=== PATIENT | female | born 1980 | race Caucasian/White ===

== ENCOUNTER 2017-02-23 06:47 | Emergency (ER) | payer MEDICAID, OTHER ==
[~2017-02-23] VITALS: Ht 170.2 cm; Wt 70.0 kg
[~2017-02-23 06:47] MED LIST: IBUP-1542 PO
[2017-02-23 06:55] VITALS: Ht 170.2 cm; Wt 70.0 kg
[2017-02-23] MEDS ORDERED: LORAZEPAM 2 MG INJ IV STA (07:00)
[2017-02-23 07:34] LABS: BASOPHIL # 0.1 10^3/ul (0.0-0.1); BASOPHILS % 0.4 % (0.0-2.0); EOSINOPHILS # 0.5 10^3/ul (0.0-0.5); EOSINOPHILS % 3.3 % (0.0-7.0); HEMATOCRIT 35.5 % (37.0-47.0); HEMOGLOBIN 12.8 g/dl (12.0-16.0); LYMPHOCYTES # 4.2 10^3/ul (0.8-2.9); LYMPHOCYTES % 27.8 % (15.0-51.0); MEAN CORPUSCULAR HEMOGLOBIN 30.8 pg (29.0-33.0); MEAN CORPUSCULAR HGB CONC 36.1 g/dl (32.0-37.0); MEAN CORPUSCULAR VOLUME 85.5 fl (82.0-101.0); MEAN PLATELET VOLUME 10.2 fl (7.4-10.4); MONOCYTE # 1.1 10^3/ul (0.3-0.9); NEUTROPHIL # 9.2 10^3/ul (1.6-7.5); NEUTROPHILS % 61.1 % (39.0-77.0); PLATELET COUNT 415 10^3/UL (140-415); RED BLOOD COUNT 4.15 10^6/ul (4.20-5.40); RED CELL DISTRIBUTION WIDTH 13.5 % (11.5-14.5); WHITE BLOOD COUNT 15.1 10^3/ul (4.8-10.8)
[2017-02-23 07:48] LABS: ANION GAP 18 (8-16); BLOOD UREA NITROGEN 9 mg/dl (7-20); CALCIUM 9.5 mg/dl (8.4-10.2); CARBON DIOXIDE 21 mmol/L (21-31); CHLORIDE 108 mmol/L (97-110); CREATININE 0.98 mg/dl (0.44-1.00); GLUCOSE 101 mg/dl (70-220); POTASSIUM 3.9 mmol/L (3.5-5.1); SODIUM 143 mmol/L (135-144)
[2017-02-23 07:53] LABS: ETHANOL < 10.0 mg/dl
[2017-02-23] MEDS ORDERED: SOD CHLORIDE 0.9% 1,000 ML IV STA (07:54)
[2017-02-23] MEDS ORDERED: OXCA150T43 PO (08:32)
[2017-02-23 09:45] VITALS: BP 115/84; PULSE 80; RESP 16; TEMP 98.4
[2017-02-23 09:51] LABS: BARBITURATES Negative (NEGATIVE); BENZODIAZEPINES Negative (NEGATIVE); CANNABINOIDS Positive (NEGATIVE); COCAINE Negative (NEGATIVE); OPIATES Negative (NEGATIVE)
--- NOTE | 2017-02-23 10:02 | ERD ---
ER Documentation Chief Complaint Chief Complaint BIB [facility] FOR SEIZURE EPISODE THIS AM. HX OF SEIZURES. NO APPARENT INJURIES HPI Patient is a 36-year-old female with seizures who presents with a seizure. She was brought in by ambulance. She has a history of seizures. She had a "focal seizure" today. She takes oxcarbazepine per the . The seizure happened at 6:05 AM and lasted 4-5 minutes. It stopped on its own. The patient had confusion and "finger clicking" per the . Upon review of old medical records this is the patient's second visit to the ER. Patient and do not remember the primary doctor's name. ROS All systems reviewed and are negative except as per history of present illness. Medications Home Meds Active Scripts Ibuprofen* (Motrin*) 600 Mg Tab, 600 MG PO Q6, #30 TAB Prov:GAVIN HERNANDEZ PA-C 01/13/16 Reported Medications Oxcarbazepine* (Oxcarbazepine*) 150 Mg Tablet, 150 MG PO BID, #60 02/23/17 Allergies Allergies: Coded Allergies: No Known Allergy (Unverified , 02/23/17) PMhx/Soc Medical and Surgical Hx: pt denies Surgical Hx History of Surgery: No Hx Neurological Disorder: Yes (SEIZURES) Hx Respiratory Disorders: No Hx Cardiac Disorders: No Hx Psychiatric Problems: No Hx Miscellaneous Medical Probl: No Hx Alcohol Use: Yes (DAILY DRINKER QUIT 2-WEEKS AGO) Hx Substance Use: No Hx Tobacco Use: Yes (10 CIGS/DAY) Smoking Status: Current every day smoker FmHx Family History: No diabetes Physical Exam Vitals Vital Signs Date Time Temp Pulse Resp B/P Pulse Ox O2 Delivery O2 Flow Rate FiO2 02/23/17 06:55 98.3 109 18 108/70 98 Physical Exam Const: No acute distress Head: Atraumatic Eyes: Normal Conjunctiva ENT: Normal External Ears, Nose and Mouth. Neck: Full range of motion..~ No meningismus. Resp: Clear to auscultation bilaterally Cardio: Regular rate and rhythm, no murmurs Abd: Soft, non tender, non distended. Normal bowel sounds Skin: No petechiae or rashes Back: No midline or flank tenderness Ext: No cyanosis, or edema Neur: Awake and alert, confusion but no active seizure activity Psych: Normal Mood and Affect Result Diagram: 10/27/17 0654 02/23/17 0654 Results 24 hrs Laboratory Tests Test 02/23/17 06:54 02/23/17 07:15 02/23/17 07:20 02/23/17 09:15 White Blood Count 15.110^3/ul Red Blood Count 4.1510^6/ul Hemoglobin 12.8g/dl Hematocrit 35.5% Mean Corpuscular Volume 85.5fl Mean Corpuscular Hemoglobin 30.8pg Mean Corpuscular Hemoglobin Concent 36.1g/dl Red Cell Distribution Width 13.5% Platelet Count 07883^3/UL Mean Platelet Volume 10.2fl Neutrophils % 61.1% Lymphocytes % 27.8% Monocytes % 7.0% Eosinophils % 3.3% Basophils % 0.4% Nucleated Red Blood Cells % 0.0/100WBC Neutrophils # 9.210^3/ul Lymphocytes # 4.210^3/ul Monocytes # 1.110^3/ul Eosinophils # 0.510^3/ul Basophils # 0.110^3/ul Nucleated Red Blood Cells # 0.010^3/ul Sodium Level 143mmol/L Potassium Level 3.9mmol/L Chloride Level 108mmol/L Carbon Dioxide Level 21mmol/L Anion Gap 18 Blood Urea Nitrogen 9mg/dl Creatinine 0.98mg/dl Glucose Level 101mg/dl Calcium Level 9.5mg/dl Ethyl Alcohol Level < 10.0mg/dl Serum HCG, Qualitative NEGATIVE Bedside Glucose 109mg/dL Urine Opiates Screen Negative Urine Barbiturates Negative Urine Amphetamines Screen Negative Urine Benzodiazepines Screen Negative Urine Cocaine Screen Negative Urine Cannabinoids Positive Current Medications Medications (Trade) Dose Ordered Sig/Nancy Route PRN Reason Start Time Stop Time Status Last Admin Dose Admin Lorazepam 1 mg 1 mg ONCE STAT IV 02/23/17 07:00 02/23/17 07:01 DC 02/23/17 07:36 Sodium Chloride (NS) 1,000 ml @ 1,000 mls/hr Q1H STAT IV 02/23/17 07:54 02/23/17 08:53 DC 02/23/17 08:00 Procedures/MDM Smoking Cessation Therapy: Pt. was lectured for greater than 3 minutes on the health risks of continued smoking and the benefits of cessation. Patient is a 36-year-old female with a history of seizures who presents with seizure. She was given 1 mg of Ativan. Laboratory studies are normal. The patient will be discharged and has no further seizure activity. I doubt intracranial hemorrhage or mass or meningitis. I doubt status epilepticus. I believe the risks of doing a CT scan of the brain outweigh the benefits. The patient will be discharged and can follow-up with her primary doctor within 24- 48 hours to discuss seizure management. A DMV form was filled out and the patient was instructed that she cannot drive until cleared by a doctor. Departure Diagnosis: Primary Impression: Seizure disorder Condition: Fair Patient Instructions: Seizure, Recurrent [Adult] Referrals: Your doctor Additional Instructions: Call your primary care doctor TOMORROW for an appointment during the next 1-2 days.See the doctor sooner or return here if your condition worsens before your appointment time. HILARIO NICOLE MD Feb 23, 2017 10:02
== END 2017-02-23 09:45 | disposition home or self-care (01) ==
LOC: E/R 06:47
DX: G40.909 Epilepsy, unspecified, not intractable, without status epilepticus (principal); F17.210 Nicotine dependence, cigarettes, uncomplicated; R40.2142 Coma scale, eyes open, spontaneous, at arrival to emergency department; R40.2252 Coma scale, best verbal response, oriented, at arrival to emergency department; R40.2362 Coma scale, best motor response, obeys commands, at arrival to emergency department
CPT/HCPCS: 36415; 80048; 80306; 80307; 82962; 84703; 85025; 96374; J2060; J7030; Z7502; Z7610